=== PATIENT | female | born 1955 | race Caucasian/White ===

== ENCOUNTER → 2019-02-26 09:22 | Outpatient (BNVA) | payer OTHER, SELFPAY | PROVIDERS: Family Provider Family Medicine; Referring Provider Family Medicine; Visit Provider Otolaryngology | DX: R09.81 Nasal congestion (principal); J34.2 Deviated nasal septum; J34.3 Hypertrophy of nasal turbinates; J32.9 Chronic sinusitis, unspecified; H60.63 Unspecified chronic otitis externa, bilateral | CPT/HCPCS: 99203; 99214 ==

== ENCOUNTER 2019-03-13 10:04 | Outpatient (CLI) | payer OTHER, SELFPAY ==
--- NOTE | 2019-03-13 10:30 | CT_ITS ---
WS: [id number] CT PARANASAL SINUSES HISTORY: sinusitis TECHNIQUE: Contiguous 2.5 mm axial images obtained through the sinuses. Images are reconstructed in s agittal and coronal planes. All CT scans at [facility] use at least one of these dose opt imization techniques: automated exposure control; mA and/or kV adjustment per patient size (includes targeted exams where dose is matched to clinical indication); or iterative reconstruction. DLP: 525.01 mGy.cm COMPARISON: 01/13/2008 Frontal sinuses: Small septa extend to the frontal sinus. No bone destruction or mucoperiosteal disea se. Sphenoid sinus: Normal. Ethmoid sinuses: Mild mucoperiosteal thickening in the mid posterior LEFT ethmoid air cells. Maxillary sinus: Complete soft tissue opacification of the LEFT maxillary sinus. This was previously described in 2008 with no interval change. There is no bone destruction or expansion of the nasal cav ity or bone thickening. RIGHT maxillary sinus is clear. Ostiomeatal unit: Complete soft tissue obstruction of the LEFT ostiomeatal unit. Similar to the prior examinations. Mild thinning of the uncinate process but no progression since the prior examinations. RIGHT ostiomeatal unit is widely patent. Mild S-shaped curvature nasal septum. CT/CT sinus wo con* [id number] IMPRESSION: 1. Long-term complete opacification of the LEFT maxillary sinus. No bone dest ruction or cortical thickening. Suspect this is probably chronic mucoperiosteal thickening or mucous retention cyst. 2. LEFT maxillary sinus opacification has completely obstructed the LEFT ostio meatal unit. Also no change since 2007. 3. Very mild S-shaped curvature of the nasal septum.
== END 2019-03-13 10:05 | disposition home or self-care (01) ==
PROVIDERS: Family Provider Family Medicine; PCP Family Medicine; Visit Provider Otolaryngology
DX: J32.9 Chronic sinusitis, unspecified (principal); J34.89 Other specified disorders of nose and nasal sinuses
CPT/HCPCS: 70486

== ENCOUNTER → 2019-03-18 14:52 | Outpatient (BNVA) | payer OTHER, SELFPAY | PROVIDERS: Family Provider Family Medicine; PCP Family Medicine; Visit Provider Otolaryngology | DX: J32.9 Chronic sinusitis, unspecified (principal) | CPT/HCPCS: 96372; 99214; J3301 ==

== ENCOUNTER → 2019-04-10 14:55 | Outpatient (BNVA) | payer OTHER, SELFPAY | PROVIDERS: Family Provider Family Medicine; PCP Family Medicine; Visit Provider Otolaryngology | DX: J32.0 Chronic maxillary sinusitis (principal); J34.89 Other specified disorders of nose and nasal sinuses; J34.3 Hypertrophy of nasal turbinates; J34.2 Deviated nasal septum; H60.63 Unspecified chronic otitis externa, bilateral | CPT/HCPCS: 99214 ==

== ENCOUNTER 2019-04-16 07:27 | Outpatient (CLI) | payer OTHER, SELFPAY ==
--- NOTE | 2019-04-16 07:32 | MM_ITS ---
WS: [id number] SCREENING DIGITAL MAMMOGRAM WITH CAD HISTORY: SCREENING COMPARISON: 02/15/2018, 01/25/2017. Bilateral CC and MLO views submitted. Computer aided detection analyzed. Breast composition: The breasts are heterogeneously dense, which may obscure small masses. Asymmetry measuring 6.3 mm in the lateral LEFT breast seen on the CC projection. Otherwise breast par enchyma is stable. No calcifications or distortion. LEFT breast: Spot compression views (CC ). True ML. Ultrasound to follow if abnormality persists. MM/[place] [id number] IMPRESSION: BI-RADS: 0-Incomplete: Need additional imaging evaluation FOLLOW UP: Need Additional Imaging
== END 2019-04-16 07:28 | disposition home or self-care (01) ==
LOC: RADSHAW 07:28
PROVIDERS: Family Provider Family Medicine; PCP Family Medicine; Visit Provider Obstetrics & Gynecology
DX: Z12.31 Encounter for screening mammogram for malignant neoplasm of breast (principal)
CPT/HCPCS: 77067

== ENCOUNTER 2019-04-28 10:25 | Outpatient (CLI) | payer OTHER, SELFPAY ==
--- NOTE | 2019-04-28 10:28 | US_ITS ---
WS: [id number] ADDITIONAL VIEWS LEFT MAMMOGRAM LEFT BREAST ULTRASOUND HISTORY: LT BREAST ASYMMETRY COMPARISON: 04/16/2019 and 02/15/2018 LEFT MAMMOGRAM: Spot compression views and true ML. Ovoid asymmetry persist at the 1-2 o'clock axis measuring 6 mm. Ultrasound to follow. LEFT BREAST ULTRASOUND 2-D and color Doppler imaging submitted. Ultrasound directed to the upper outer quadrant of the LEFT breast. At the 2:00 axis is a small cyst measuring 3 x 3 x 2 mm, 3 cm from the nipple. There is an additional ovoid minimally complex cyst at 3:00, 2 cm from the nipple. This is not completely cystic. Hypoechoic mass measures 6 x 7 x 3 mm. Recommend LEFT mammogram and ultrasound follow-up in 6 months. In particular to reevaluate the comple x cystic nodule at 3:00, 2 cm from the nipple. US/US breast LT limited* [id number] IMPRESSION: BI-RADS: 3-Probably Benign FOLLOW UP: 6 Month Follow-up
== END 2019-04-28 10:26 | disposition home or self-care (01) ==
LOC: RADSHAW 10:25
PROVIDERS: Family Provider Family Medicine; PCP Family Medicine; Visit Provider Obstetrics & Gynecology
DX: N64.89 Other specified disorders of breast (principal); N60.02 Solitary cyst of left breast
CPT/HCPCS: 76642; 77065

== ENCOUNTER 2019-09-18 08:54 | Outpatient (CLI) | payer OTHER, SELFPAY ==
--- NOTE | 2019-09-18 09:10 | US_ITS ---
WS: [id number] Left breast ultrasound, 09/18/2019 Clinical Data: LT BREAST CYSTIC NODULE Comparison: Left breast ultrasound, 04/28/2019. Findings: At the 3:00 position 2 cm from the nipple in the left breast there is an area of cystic change. It is likely a complex cyst with echoes within. It is well bordered and the border is slightly irregular b ut there are no gaps in the border. This complex cystic area measures 0.55 cm and has not changed in appearance. 1. Probable complex cyst of the left breast in the 3:00 position 2 cm from the nipple. 2. Recommend 6 month follow-up with ultrasound US/US breast LT limited* [id number] Impression: BIRADS: 3-Probably Benign FOLLOW UP: See Report
--- NOTE | 2019-09-18 09:10 | MM_ITS ---
WS: [id number] Left breast diagnostic digital mammogram, 09/18/2019 Clinical Data: LT BREAST CYSTIC NODULE Comparison: 04/28/2019, 04/16/2019, 02/15/2018, and 25/02/2016, 01/11/2016, 11/04/2014, 09/29/2011, 1, 09/13/2006. Findings: The left lateral nodule is not seen on the CC or ML view of the left breast on the current examinatio n. There were numerous mole markers placed on the left breast. The breast parenchymal pattern showed heterogeneous density. No spiculated masses or clustered calcifications are seen. MM/[place] [id number] Impression: 1. Density in the lateral aspect the left breast not well seen on today's exam. 2. Recommend follow-up with ultrasound in 6 months. BIRADS: 3-Probably Benign FOLLOW UP: See Report The CAD roller checker was used.
== END 2019-09-18 08:55 | disposition home or self-care (01) ==
LOC: RADSHAW 08:54
PROVIDERS: PCP Family Medicine; Visit Provider Obstetrics & Gynecology
DX: N60.02 Solitary cyst of left breast (principal)
CPT/HCPCS: 76642; 77065

== ENCOUNTER → 2019-11-04 14:54 | Outpatient (BNVA) | payer MEDICARE, OTHER, SELFPAY | PROVIDERS: PCP Family Medicine; Referring Provider Dermatology; Visit Provider Dermatology | DX: L21.9 Seborrheic dermatitis, unspecified (principal); L82.1 Other seborrheic keratosis; D22.9 Melanocytic nevi, unspecified; D23.9 Other benign neoplasm of skin, unspecified | CPT/HCPCS: 99203; 99204 ==

== ENCOUNTER 2020-03-16 08:43 | Outpatient (CLI) | payer MEDICARE, OTHER, SELFPAY ==
--- NOTE | 2020-03-16 09:02 | MM_ITS ---
WS: [id number] DIAGNOSTIC LEFT DIGITAL MAMMOGRAM WITH CAD LEFT breast ultrasound, limited HISTORY: 6 MO F/U CYST OF LEFT BREAST COMPARISON: 09/18/2019, 04/16/2019, 01/25/2017 Technique: CC, MLO and ML views. Spot compression LEFT CC. Breast composition: There are scattered areas of fibroglandular density. No change in the asymmetry. In the lateral aspect of the LEFT breast are stable nodules. This will be better evaluated by ultras ound. LEFT breast ultrasound, limited. At 3:00, 2 cm from the nipple is a lobulated complex cystic mass without increased vascularity. There is no through-transmission. This irregular nodule measures 5 x 8 x 5 mm. Nodule not significantly ch anged in size. MM/[place] [id number] IMPRESSION: BI-RADS: 4-Suspicious Finding-Biopsy Should Be Considered FOLLOW UP: Biopsy Recommended Ultrasound-guided biopsy recommended of the complex cystic nodule at 3:00. Mini mal change in size since the prior study.
== END 2020-03-16 08:44 | disposition home or self-care (01) ==
LOC: RADSHAW 08:44
PROVIDERS: PCP Family Medicine; Visit Provider Obstetrics & Gynecology
DX: N60.02 Solitary cyst of left breast (principal); N63.25 Unspecified lump in the left breast, overlapping quadrants
CPT/HCPCS: 76642; 77065

== ENCOUNTER 2020-03-30 07:03 | Outpatient (CLI) | payer MEDICARE, OTHER, SELFPAY ==
--- NOTE | 2020-03-30 07:10 | US_ITS ---
WS: [id number] ULTRASOUND-GUIDED LEFT BREAST BIOPSY CLINICAL INFORMATION: LEFT BREAST CYSTIC NODULE COMPARISON: None. FINDINGS: The procedure including risks, benefits, and complications were discussed with the patient who agreed to proceed. Using sterile technique patient was prepped and draped in the usual sterile fashion. Aft er 1% lidocaine utilizing real-time ultrasound guidance 5 14-gauge cores were obtained of the left br east lesion at the 3 o'clock position. Subsequently a titanium clip was placed in the biopsy cavity. No immediate complications. PATHOLOGY DEMONSTRATES A. Breast, left, biopsy: -Cores of fibroadipose tissue with rare atypical areas. -Ancillary studies have been performed and will be reported in the pathology report. FINAL PATHOLOGY demonstrates atypical ductal hyperplasia in a background of sclerosing adenosis. No i nvasive carcinoma or ductal carcinoma in situ. US/[place] [id number] IMPRESSION: 1. Uncomplicated ultrasound-guided left breast biopsy. 2. FINAL PATHOLOGY demonstrates ATYPICAL DUCTAL HYPERPLASIA with a background of sclerosing adenosis. No invasive carcinoma or ductal carcinoma in situ. Naun mmend breast surgical consultation for excision. BI-RADS: Post Biopsy FOLLOW UP: Surgical Biopsy Recommended Recommend Breast surgery consultation for surgical excision consideration due t o the atypical ductal hyperplasia.
== END 2020-03-30 07:04 | disposition home or self-care (01) ==
LOC: RAD 07:06
PROVIDERS: PCP Family Medicine; Visit Provider Obstetrics & Gynecology
DX: D24.2 Benign neoplasm of left breast (principal); N60.02 Solitary cyst of left breast
CPT/HCPCS: 19083; 88305

== ENCOUNTER → 2020-04-30 08:37 | Outpatient (BNVA) | payer MEDICARE, OTHER, SELFPAY | PROVIDERS: PCP Family Medicine; Visit Provider Surgery | DX: Z01.818 Encounter for other preprocedural examination (principal); Z20.828 Contact with and (suspected) exposure to other viral communicable diseases | CPT/HCPCS: 87635 ==

== ENCOUNTER 2020-05-06 07:26 | Day surgery (SDC) | payer MEDICARE, OTHER, SELFPAY ==
[2020-05-05 14:12] VITALS: BMI 27.4
[2020-05-06] VITALS (7 sets, daily range): BP systolic 119–147; BP diastolic 55–91; PULSE 57–88; RESP 18–20; TEMP 36.1–36.7; O2SAT 94–99
--- NOTE | 2020-05-06 07:53 | US_ITS ---
WS: [id number] ULTRASOUND-GUIDED LEFT BREAST NEEDLE LOCALIZATION HISTORY: ADH Procedure, risks and complications were explained to the patient. Consent is obtained. Skin is cleansed with ChloraPrep and anesthetized with 1% buffered lidocaine. Needle and guidewire pl aced to the area of concern with no complications. Ultrasound guidance performed during the needle lo calization. Guidewire is left within the lesion. Guidewire secured and no complications encountered. Patient is being transported to the OR suite. Specimen radiograph is also reviewed. Area of concern is contained within the specimen. RECOMMENDATIONS: Follow-up with Dr. Mosqueda. US/[place] [id number] IMPRESSION: 1. Uncomplicated needle localization of LEFT breast mass at 3:00. PATHOLOGY RESULTS: Atypical ductal hyperplasia on a background of sclerosing ad enosis. No ductal carcinoma in situ identified. No invasive carcinoma. Multifoc al atypia is noted along the medial edge of the biopsy cavity. Pathology report describes this as worrisome for an intracystic neoplastic process. This is a p reliminary report. Pathology will be following up with an additional final repo rt.
--- NOTE | 2020-05-06 08:13 | PC.NURSE ---
PATIENT OFF THE UNIT FOR ULTRASOUND. ACCOMPANIED BY STAFF
--- NOTE | 2020-05-06 08:16 | ANES.PREANE2 ---
Pre-Anesthetic Assessment Pre-Anesthetic Assessment: Height/Weight: Height 1.65 m Weight 74.843 kg Temp Pulse Resp BP Pulse Ox 97.4 F L 60 18 140/91 97 05/06/20 07:39 05/06/20 07:39 05/06/20 07:39 05/06/20 07:39 05/06/20 07:39 Proposed Procedure: Operation Date: 05/06/20 09:15 Proposed Procedures p Breast Biopsy Needle Localization N60.92(Left) - Robby Mosqueda MD s Left breast lumpectomy(Left) - Robby Mosqueda MD Was Beta Charissa taken within 24 hours: N/A Was Clonidine taken within 24 hours: N/A Last intake: Intake Last Liquid Date 05/05/20 Last Liquid Time 18:30 Last Solid Date 05/05/20 Last Solid Time 18:30 Social: Social History: No alcohol and No tobacco Exam: Pre-Anes Outpt Exam: alert, oriented x 3, clear to auscultation bilaterally and regular rate & rhythm Airway: Submandibular: WNL Cervical ROM: WNL MP: 2 Dentition: Full CV/HEM: CV/HEM: HTN Anesthetic Plan: ASA status: 2 Anesthesia: MAC Risk of > 500 ml blood loss (7ml/kg in children): No PFSH Anesthesia PFSH: Medical History Nasal vestibulitis Family History Mother Dementia Father Cancer Other Hypertension Social History Smoking and tobacco status: never smoked Alcohol intake: current Alcohol intake frequency: few times a month Data Anesthesia Cardiac Studies: No Data to Display
--- NOTE | 2020-05-06 08:57 | PC.NURSE ---
PATIENT BACK ON UNIT FROM ULTRASOUND
[2020-05-06] MEDS: sodium chloride 0.9% 1,000 ML 30 ML IV (09:12)
--- NOTE | 2020-05-06 11:28 | W.PM.OPSUD ---
Surgery/Procedure H&P Update DATE OF PROCEDURE: May 06, 2020 DATE H&P PERFORMED: 04/20/20 H&P UPDATE INFORMATION: No changes to prior documentation PLANNED PROCEDURE: Operation Date: 05/06/20 09:15 Proposed Procedures p Breast Biopsy Needle Localization [id number] N60.92(Left) - Robby Mosqueda MD s Left breast lumpectomy(Left) - Robby Mosqueda MD
--- NOTE | 2020-05-06 12:06 | P.OP_ITS ---
Operative Report Date of procedure: May 06, 2020 Pre-op Diagnosis: Atypical ductal hyperplasia of the left breast. Post-op diagnosis: same Procedure Done: Left breast lumpectomy following preoperative needle localization. Specimens removed/disposition: 1. Left breast lumpectomy specimen containing localization wire. Long suture anteriorly, short suture laterally. 2. Medial edge of biopsy cavity. Surgeon: Robby Mosqueda Anesthesia: MAC Estimated blood loss (mL): 5 Complications: None. Condition: stable Disposition: same day Procedure: The patient was brought to the operating room and was placed in a supine position on the operating room table. A monitored anesthetic was induced. The left breast was prepped and draped in a sterile fashion, taking care not to disturb the localization wire which had been placed in radiology preoperatively. A combination of 1% lidocaine and 0.5% bupivacaine with 1- 200,000 parts epinephrine was used for local anesthesia throughout the procedure. A curvilinear incision was carried out at the 3-4 o'clock axis of the left breast over the jose where the radiologist had indicated the location of the lesion. The localization wire entered laterally and somewhat superiorly to this. Cautery was used to enter the breast tissue and then the skin was undermined to the insertion point of the wire. The wire was brought into the incision. Dissection was carried out along the wire until the hub of the needle could be seen. The localization wire and surrounding breast tissue were then grasped with an Allis clamp and a combination of cautery and sharp dissection were used to remove the entire mass of tissue around the tip of the localization wire. Before the specimen had been completely removed it was marked with a long suture anteriorly and a short suture laterally for pathologic orientation. Palpation in the remainder of the wound revealed a little bit of firm tissue medially. For this reason the tissue was grasped with an Allis clamp and was excised using a pair of Metzenbaum scissors and was sent as a separate specimen. No remaining palpable abnormalities were visual abnormalities were found in the wound. The wound was irrigated with saline. Some small bleeding points were controlled with cautery. The skin was reapproximated using a running subcuticular suture of 4-0 Vicryl. Benzoin and Steri-Strips were placed over the incision and a sterile bandage followed. The patient was taken to the recovery area in stable condition postoperatively.
--- NOTE | 2020-05-06 12:15 | SUR.PHASEI ---
DR AYERS AT BEDSIDE PT AWAKES TO VOICE EASILY AND VERBALLY AND APPROPRIATELY CONVERSES WITH DR, PT DENIES PAIN AND NAUSEA, VSS.
--- NOTE | 2020-05-06 13:00 | US_ITS ---
WS: [id number] ULTRASOUND-GUIDED LEFT BREAST NEEDLE LOCALIZATION HISTORY: ADH Procedure, risks and complications were explained to the patient. Consent is obtained. Skin is cleansed with ChloraPrep and anesthetized with 1% buffered lidocaine. Needle and guidewire pl aced to the area of concern with no complications. Ultrasound guidance performed during the needle lo calization. Guidewire is left within the lesion. Guidewire secured and no complications encountered. Patient is being transported to the OR suite. Specimen radiograph is also reviewed. Area of concern is contained within the specimen. RECOMMENDATIONS: Follow-up with Dr. Mosqueda. US/US breast surgical specimen IMPRESSION: 1. Uncomplicated needle localization of LEFT breast mass at 3:00. PATHOLOGY RESULTS: Atypical ductal hyperplasia on a background of sclerosing ad enosis. No ductal carcinoma in situ identified. No invasive carcinoma. Multifoc al atypia is noted along the medial edge of the biopsy cavity. Pathology report describes this as worrisome for an intracystic neoplastic process. This is a p reliminary report. Pathology will be following up with an additional final repo rt.
--- NOTE | 2020-05-06 14:46 | ANE.PACU2 ---
Inpatient post-anesthesia follow up: Airway intact: Yes Vital signs: Temperature 97.0 F Pulse Rate 88 Respiratory Rate 18 Blood Pressure 137/65 Pulse Oximetry 99 Oxygen Delivery Me thod Room Air Oxygen Flow Rate Fraction of Inspir ed Oxygen Hydration adequate: Yes Nausea and vomiting: No Pain level: 1 Mental status: Baseline
== END 2020-05-06 13:16 | disposition home or self-care (01) ==
PROVIDERS: PCP Family Medicine; Visit Provider Surgery
PROC: (CPT 19301; principal; 2020-05-06 09:15)
PROC: (CPT 19301; 2020-05-06 09:15)
DX: N60.92 Unspecified benign mammary dysplasia of left breast (principal); I10 Essential (primary) hypertension; Z79.82 Long term (current) use of aspirin
CPT/HCPCS: 19301; 12345; 19285; 88305; 96365; C1889; J0690; J2704; J3010; J3490; J7030

== ENCOUNTER 2020-07-07 09:13 | Outpatient (CLI) | payer MEDICARE, OTHER, SELFPAY ==
--- NOTE | 2020-07-07 09:25 | MM_ITS ---
WS: [id number] DIAGNOSTIC RIGHT DIGITAL MAMMOGRAM WITH CAD HISTORY: COMPLETION OF REFERRAL FROM MAR 2020 COMPARISON: 04/16/2019, 02/16/2008 and 01/25/2017 Technique: CC, MLO and ML views. Breast composition: There are scattered areas of fibroglandular density. No suspicious masses or elyssa cifications or distortion. MM/[place] [id number] IMPRESSION: BI-RADS: 1-Negative FOLLOW UP: 1 Year Follow-up
== END 2020-07-07 09:14 | disposition home or self-care (01) ==
LOC: RADSHAW 09:19
PROVIDERS: PCP Family Medicine; Visit Provider Obstetrics & Gynecology
DX: N60.91 Unspecified benign mammary dysplasia of right breast (principal)
CPT/HCPCS: 77065

== ENCOUNTER 2021-07-27 07:58 | Outpatient (CLI) | payer MEDICARE, OTHER, SELFPAY ==
--- NOTE | 2021-07-27 08:11 | MM_ITS ---
WS: [id number] VIEWS: MLO, CC, and ML views both breasts. 3D digital tomosynthesis is also included in this exam. Comparison made with prior exam of 02/15/2018, 04/16/2019. 07/07/2020.. Findings: There was no sign of mass, architectural distortion or suspicious calcification in either breast. Sc attered fibroglandular densities MM/[place] [id number] Impression: BI-RADS: 2-Benign FOLLOW-UP: 1 Year Follow-up This mammogram was also analyzed by the Computer Aided Detection System R2 [employer] Re[employer]er.
== END 2021-07-27 07:59 | disposition home or self-care (01) ==
LOC: RAD 08:01
PROVIDERS: PCP Family Medicine; Visit Provider Obstetrics & Gynecology
DX: Z12.31 Encounter for screening mammogram for malignant neoplasm of breast (principal); Z85.3 Personal history of malignant neoplasm of breast
CPT/HCPCS: 77062

== ENCOUNTER → 2021-08-30 13:12 | Outpatient (BNVA) | payer MEDICARE, OTHER, SELFPAY | PROVIDERS: PCP Family Medicine; Visit Provider Clinical Nurse Specialist Adult Health | DX: R52 Pain, unspecified (principal) | CPT/HCPCS: 87400 ==

== ENCOUNTER → 2022-07-13 08:11 | Outpatient (BNVA) | payer MEDICARE, OTHER, SELFPAY | PROVIDERS: PCP Family Medicine; Visit Provider Family Medicine | DX: Z00.00 Encounter for general adult medical examination without abnormal findings (principal); E03.9 Hypothyroidism, unspecified; Z13.6 Encounter for screening for cardiovascular disorders | CPT/HCPCS: 80053; 80061; 84443; 85025 ==

== ENCOUNTER → 2022-08-03 10:23 | Outpatient (BNVA) | payer MEDICARE, OTHER, SELFPAY | PROVIDERS: PCP Family Medicine; Visit Provider Family Medicine | DX: E55.9 Vitamin D deficiency, unspecified (principal) | CPT/HCPCS: 82652 ==

== ENCOUNTER 2022-08-28 08:42 | Outpatient (CLI) | payer MEDICARE, OTHER, SELFPAY ==
--- NOTE | 2022-08-28 09:51 | MM_ITS ---
WS: [id number] DIAGNOSTIC BILATERAL DIGITAL BREAST TOMOSYNTHESIS MAMMOGRAPHY WITH CAD HISTORY: R92.8 - Other abnormal and inconclusive findings on diagnostic imaging.... COMPARISON: 07/27/2021, 07/07/2020 TECHNIQUE: Bilateral craniocaudad, mediolateral oblique, and mediolateral views are submitted with to mosynthesis and SM. Computer aided detection utilized. Breast composition: Scattered areas of fibroglandular density. No suspicious masses. Asymmetries with in each breast are stable. No nipple retraction. No distortion. MM/[place] [id number] IMPRESSION: BI-RADS: 1-Negative FOLLOW UP: 1 Year Follow-up
== END 2022-08-28 08:43 | disposition home or self-care (01) ==
PROVIDERS: PCP Family Medicine; Visit Provider Family Medicine
DX: R92.8 Other abnormal and inconclusive findings on diagnostic imaging of breast (principal)
CPT/HCPCS: 77062; 77063; 77067; G0279

== ENCOUNTER 2022-10-24 08:27 | Outpatient (CLI) | payer MEDICARE, OTHER, SELFPAY ==
--- NOTE | 2022-10-24 08:38 | XR_ITS ---
WS: [id number] XR hip BI 2V wo/w pel [id number] REASON FOR EXAM: hip pain FINDINGS: RIGHT HIP: No fracture or focal bone lesion. Mild/moderate narrowing of the joint space with mild/moderate subchondral sclerosis of the acetabulum . No soft tissue abnormality. LEFT HIP: No fracture or focal bone lesion. Mild/moderate narrowing of the joint space with mild subchondral sclerosis of the acetabulum. No soft tissue abnormality. IMPRESSION: Symmetric mild/moderate osteoarthritis of the hip joints.
== END 2022-10-24 08:28 | disposition home or self-care (01) ==
LOC: RAD 08:32
PROVIDERS: PCP Family Medicine; Visit Provider Family Medicine
DX: M16.0 Bilateral primary osteoarthritis of hip (principal)
CPT/HCPCS: 73521

== ENCOUNTER 2023-07-15 23:48 | Emergency (ER) | payer MEDICARE, OTHER, SELFPAY ==
[2023-07-15 23:56] VITALS: BP 165/87; PULSE 57; RESP 18; TEMP 36.7; O2SAT 100; BMI 25.4
--- NOTE | 2023-07-15 23:58 | CTR_ITS ---
PROCEDURE INFORMATION: Exam: CT Abdomen And Pelvis With Contrast Exam date and time: 07/16/2023 12:39 AM Age: 67 years old Clinical indication: Abdominal pain; Prior surgery; Surgery date: 6+ months; Surgery type: Ovarian cystectomy; Patient HX: C/O periumbilical pain with nausea; Additional info: Abd pain TECHNIQUE: Imaging protocol: Computed tomography of the abdomen and pelvis with contrast. Radiation optimization: All CT scans at this facility use at least one of these dose optimization techniques: automated exposure control; mA and/or kV adjustment per patient size (includes targeted exams where dose is matched to clinical indication); or iterative reconstruction. Contrast material: OMNI 350; Contrast volume: 100 ml; Contrast route: INTRAVENOUS (IV); COMPARISON: CR XR hip BI 2V wo/w pel [id number] 10/24/2022 8:53 AM RADIATION DOSE METRICS: Total DLP (mGy-cm): 487.88 FINDINGS: Liver: Normal. No mass. Gallbladder and bile ducts: Gallbladder is distended with wall thickening and cholelithiasis, correlation with ultrasound advised as findings are concerning for cholecystitis. Pancreas: 4 mm calculus in the common bile duct at the level the pancreatic head with borderline common bile duct dilation to 6.8 mm. Spleen: Normal. No splenomegaly. Adrenal glands: Normal. No mass. Kidneys and ureters: Right kidney cysts, negative for follow-up advised. Right kidney cyst, negative for follow up. Stomach and bowel: Constipation. Minimal diverticulosis without diverticulitis. Appendix: No evidence of appendicitis. Intraperitoneal space: Unremarkable. No free air. No significant fluid collection. Vasculature: Unremarkable. No abdominal aortic aneurysm. Lymph nodes: Unremarkable. No enlarged lymph nodes. Urinary bladder: Unremarkable as visualized. Reproductive: Fibroid uterus. Bones/joints: Unremarkable. No acute fracture. Soft tissues: Small umbilical hernia containing omentum without bowel. CT/CT abdomen pelvis w con* [id number] IMPRESSION: 1. Gallbladder is distended with wall thickening and cholelithiasis, correlation with ultrasound advised as findings are concerning for cholecystitis. 2. 4 mm calculus in the common bile duct at the level the pancreatic head with borderline common bile duct dilation to 6.8 mm. 3. Right kidney cysts, negative for follow-up advised. 4. Constipation. 5. Minimal diverticulosis without diverticulitis. 6. Small umbilical hernia containing omentum without bowel. 7. Fibroid uterus. 8. Right kidney cyst, negative for follow up.
--- NOTE | 2023-07-15 23:59 | ED_ITS ---
HPI - Abdominal Pain 2 General: Chief Complaint: Abdominal Pain Stated Complaint: severe belly button pain n/v Time Seen by Provider: 07/15/23 23:50 Source: patient Mode of arrival: ambulatory Limitations: no limitations History of Present Illness: 67-year-old female states that 3 hours a go she was having severe lower abdominal pain she has been a sharp pain at her bellybutton denies any worse improved factors she had some nausea denies vomiting or diarrhea patient denies any fevers. Denies any worse improved factors Associated Symptoms: Denies chills, diarrhea, dysuria, fever(s), nausea and vomiting Review of Systems 2 Const: Denies: fever(s), chills, body aches or change in appetite ENMT: Denies: throat pain or dental pain Card: Denies: chest pain Resp: Denies: dyspnea GI: Reports: abdominal pain; Denies: nausea, vomiting or diarrhea : Denies: dysuria Musc: Denies: neck pain or back pain Skin/Breast: Denies: rash Neuro: Denies: headache(s) PFSH ED 2 PFSH: Medical History Hypertension Hypoglycemia Nasal vestibulitis Surgical History History of knee surgery History of lumpectomy Family History Mother Dementia Father Cancer Other Hypertension Social History Smoking and tobacco/nicotine status: never used tobacco/nicotine Alcohol intake: current Alcohol intake frequency: few times a month Substance/Drug Use: never Pets and animals: No Physical Exam 2 Const: COMMON NORMALS: no acute distress, patient oriented x3 and healthy appearing HENMT: COMMON NORMALS: normocephalic and atraumatic HEAD & SCALP: n ormocephalic and atraumatic Neck/C-Spine: COMMON NORMALS: full ROM and supple Chest: COMMONS NORMALS: normal inspection of the chest Resp: COMMON NORMALS: normal respiratory effort, No retractions, No use of accessory muscles and clear to auscultation bilaterally AUSCULTATION: clear to auscultation bilaterally Cardio: COMMON NORMALS: regular rate, regular rhythm and No murmurs present (Cardio) RATE: regular rate RHYTHM: regular rhythm GI: COMMON NORMALS: Normal to inspection, nondistended, normoactive bowel sounds present, Soft to palpation and no masses PALPATION: Yes Soft to palpation OTHER: lower abd tenderness Extremity: COMMON NORMALS: normal to inspection and full ROM Neuro: COMMON NORMALS: patient oriented x3, moves all extremities and no focal motor deficits Psych: COMMON NORMALS: mental status grossly normal, Normal thought process present and cooperative THOUGHT PROCESS: Normal thought process present Skin: COMMON NORMALS: no rashes or lesions noted and no wounds GENERAL SKIN EXAM: no rashes or lesions noted Course 2 Vital Signs: Vital signs: Vital Signs Temperature 98.1 F 07/15/23 23:56 Pulse Rate 48 L 07/16/23 02:04 Respiratory Rate 15 07/16/23 00:22 Blood Pressure 108/63 07/16/23 02:04 Pulse Oximetry 92 07/16/23 02:04 Oxygen Delivery Me thod Room Air 07/16/23 02:04 MDM - Abdominal Pain Medical Decision Making Patient presents here with abdominal pain or pains in her lower abdomen she has been pain-free after the morphine she still currently pain-free at this time. Initial and exam at discharge showed no tenderness in the right upper quadrant white counts normal liver enzymes normal bilirubin is normal. CT and ultrasound both did show stones along with some gallbladder wall thickening I have spoke to surgeon Dr. Castillo and inform him of ultrasound findings along with exam findings and her labs plan is to start her on Augmentin he is going to follow-up outpatient informed if she has worsening pain or fever she is to return she understands agrees to plan Medical Records I reviewed the patient's medical records. Lab Data I reviewed the patient's lab results. 07/16/23 00:04 07/16/23 00:04 Labs/Radiology: Radiology Impressions Abdomen/Pelvis CT 07/15/23 23:58 IMPRESSION: 1. Gallbladder is distended with wall thickening and cholelithiasis, correlation with ultrasound advised as findings are concerning for cholecystitis. 2. 4 mm calculus in the common bile duct at the level the pancreatic head with borderline common bile duct dilation to 6.8 mm. 3. Right kidney cysts, negative for follow-up advised. 4. Constipation. 5. Minimal diverticulosis without diverticulitis. 6. Small umbilical hernia containing omentum without bowel. 7. Fibroid uterus. 8. Right kidney cyst, negative for follow up. Laboratory Results WBC 9.04 10^3/uL (3.29-11.43) 07/16/23 00:04 RBC 5.10 10^6/uL (3.85-5.65) 07/16/23 00:04 Hgb 15.40 g/dL (11.27-16.99) 07/16/23 00:04 Hct 46.3 % (36-47) 07/16/23 00:04 MCV 90.8 fl (85-98) 07/16/23 00:04 MCH 30.2 pg (27-33) 07/16/23 00:04 MCHC 33.3 g/dL (30-55) 07/16/23 00:04 RDW 13.2 % (12.1-15.1) 07/16/23 00:04 Plt Count 290 10^3/cmm (157-399) 07/16/23 00:04 MPV 10.4 fL (7.4-10.4) 07/16/23 00:04 Neut % (Auto) 54.0 % 07/16/23 00:04 Lymph % (Auto) 34.5 % 07/16/23 00:04 [place] % (Auto) 8.2 % 07/16/23 00:04 Eos % (Auto) 2.5 % 07/16/23 00:04 Baso % (Auto) 0.6 % 07/16/23 00:04 Neut # (Auto) 4.88 10^3/uL (1.8-7.7) 07/16/23 00:04 Lymph # (Auto) 3.1 10^3/uL (0.8-4.8) 07/16/23 00:04 [place] # (Auto) 0.7 10^3/uL (0.2-0.9) 07/16/23 00:04 Eos # (Auto) 0.2 10^3/uL (0.0-0.8) 07/16/23 00:04 Baso # (Auto) 0.1 10^3/uL (0.0-0.1) 07/16/23 00:04 Nucleated RBC % (auto) 0 % 07/16/23 00:04 Nucleated RBCs # 0.0 /100WBC 07/16/23 00:04 Sodium 142 mmol/L (136-145) 07/16/23 00:04 Potassium 4.0 mmol/L (3.5-5.1) 07/16/23 00:04 Chloride 102 mmol/L (98-107) 07/16/23 00:04 Carbon Dioxide 26 mmol/L (22-29) 07/16/23 00:04 Anion Gap 18.0 (5-19) 07/16/23 00:04 BUN 19 mg/dL (8-23) 07/16/23 00:04 Creatinine 1.0 mg/dL (0.5-0.9) H 07/16/23 00:04 GFR Calculation 55.1 mL/min (90-130) L 07/16/23 00:04 Glucose 120 mg/dL (65-115) H 07/16/23 00:04 Calculated Osmolality 297 mOsm/kg (285-295) H 07/16/23 00:04 Calcium 9.8 mg/dL (8.5-10.5) 07/16/23 00:04 Total Bilirubin 0.6 mg/dL (0.15-1.2) 07/16/23 00:04 AST 23 U/L (0-32) 07/16/23 00:04 ALT 17 U/L (0-33) 07/16/23 00:04 Alkaline Phosphatase 52 U/L (35-105) 07/16/23 00:04 Total Protein 6.8 g/dL (6.6-8.7) 07/16/23 00:04 Albumin 4.2 g/dL (3.5-5.2) 07/16/23 00:04 Globulin 2.6 g/dL (1.3-4.6) 07/16/23 00:04 Lipase 29 U/L (13-60) 07/16/23 00:04 Urine Color Yellow (Yellow) 07/16/23 00:45 Urine Appearance Cloudy (CLEAR) A 07/16/23 00:45 Urine pH 7 (5-7) 07/16/23 00:45 Ur Specific [place] 1.005 (1.005-1.030) 07/16/23 00:45 Urine Protein Neg (Negative) 07/16/23 00:45 Urine Glucose (UA) Norm (Normal) 07/16/23 00:45 Urine Ketones Negative (Negative) 07/16/23 00:45 Urine Blood Neg (Negative) 07/16/23 00:45 Urine Nitrate Negative (Negative) 07/16/23 00:45 Urine Bilirubin Neg (Negative) 07/16/23 00:45 Urine Urobilinogen Neg mg/dL (Negative) 07/16/23 00:45 Ur Leukocyte Esterase Negative (Negative) 07/16/23 00:45 Urine RBC 0-4 /hpf (0-2) H 07/16/23 00:45 Urine WBC 0-4 /hpf (0-5) H 07/16/23 00:45 Ur Squamous Epith Cells 0-4 /hpf (0-5) H 07/16/23 00:45 Amorphous Sediment 2+ /hpf 07/16/23 00:45 Urine Bacteria 3+ /hpf (NONE) H 07/16/23 00:45 All radiology interpretation(s) finalized by discharge Discharge Plan Discharge Patient Disposition: Home Clinical Impression: Abdominal pain, Cholelithiasis Condition: Stable Prescriptions: New ondansetron 4 mg tablet,disintegrating 4 mg PO Q6H PRN (Reason: nausea and vomiting) Qty: 14 0RF Naprosyn 500 mg tablet 500 mg PO BID PRN (Reason: pain) Qty: 20 0RF Augmentin 500-125 mg tablet 1 tab PO BID Qty: 14 0RF No Action cetirizine 10 mg capsule 10 mg PO QDAY PRN (Reason: allergy symptoms) cholecalciferol (vitamin D3) 5,000 unit capsule 5,000 unit PO QDAY Women's 50 Plus Multivitamin 400 mcg-500 mg calcium-20 mcg tablet 1 tab PO QDAY aspirin [Adult Low Dose Aspirin] 81 mg tablet,delayed release (DR/EC) 81 mg PO QDAY prednisone 20 mg tablet 60 mg PO DAILY 5 Days Qty: 15 0RF famotidine [Pepcid] 40 mg tablet 40 mg PO BID 5 Days Qty: 10 0RF diphenhydramine HCl [Benadryl Allergy] 25 mg tablet 50 mg PO Q8H PRN (Reason: itching) Qty: 60 0RF lisinopril-hydrochlorothiazide 10-12.5 mg tablet See Rx Instructions .ROUTE .COMPLEX Qty: 90 3RF Dose Instruction: TAKE ONE TABLET BY MOUTH EVERY DAY Rx Instructions: TAKE ONE TABLET BY MOUTH EVERY DAY Discharge Orders: Discharge ED (Routine); Ordered 07/16/23 Ordered By: Issa Kong Referrals: Delfino Castillo MD [Physician] - 4-7 days Romeo Ferrer DO [Primary Care Provider] - Discharge Diet: Advance as tolerated Discharge Activity: Resume usual activity Patient Instructions: Abdominal Pain (ED), Opioid Safety Coding Level of Care Code ED Band Saw Operator for Sabino Carrillo
[2023-07-16] MEDS: sodium chloride 0.9% 1,000 ML 999 ML IV (00:13)
[2023-07-16] MEDS: ondansetron 2 mg/ML SDV 2 mL 4 MG IVP (00:13)
[2023-07-16] MEDS: morphine 4 mg/mL SDV 1 mL IVP (00:13)
[2023-07-16 00:22] VITALS: PULSE 48; RESP 15; O2SAT 98
[2023-07-16 00:25] LABS: Basophils # 0.1 10^3/uL (0.0-0.1); Basophils % 0.6 %; Eosinophils # 0.2 10^3/uL (0.0-0.8); Eosinophils % 2.5 %; Hematocrit 46.3 % (36-47); Lymphocytes # 3.1 10^3/uL (0.8-4.8); Lymphocytes % 34.5 %; Mean Corpuscular HGB Conc 33.3 g/dL (30-55); Mean Corpuscular Hemoglobin 30.2 pg (27-33); Mean Corpuscular Volume 90.8 fl (85-98); Mean Platelet Volume 10.4 fL (7.4-10.4); Monocytes # 0.7 10^3/uL (0.2-0.9); Monocytes % 8.2 %; Neutrophils # 4.88 10^3/uL (1.8-7.7); Nucleated Red Blood Cells % 0 %; Platelet Count 290 10^3/cmm (157-399); Red Cell Distribution Width 13.2 % (12.1-15.1); White Blood Count 9.04 10^3/uL (3.29-11.43)
[2023-07-16] MEDS: iohexol 350 mg/mL 500 mL Btl (per mL) IV (00:41)
[2023-07-16 00:45] LABS: Alanine Aminotransferase 17 U/L (0-33); Albumin Level 4.2 g/dL (3.5-5.2); Alkaline Phosphatase 52 U/L (35-105); Blood Urea Nitrogen 19 mg/dL (8-23); Calcium 9.8 mg/dL (8.5-10.5); Carbon Dioxide 26 mmol/L (22-29); Chloride 102 mmol/L (98-107); Globulin 2.6 g/dL (1.3-4.6); Glomerular Filtration Rate 55.1 mL/min (90-130); Glucose 120 mg/dL (65-115); Lipase 29 U/L (13-60); Osmolality Calculated 297 mOsm/kg (285-295); Sodium 142 mmol/L (136-145); Total Bilirubin 0.6 mg/dL (0.15-1.2); Total Protein 6.8 g/dL (6.6-8.7)
[2023-07-16 00:46] LABS: Aspartate Amino Transferase 23 U/L (0-32)
[2023-07-16 01:17] LABS: Add Urine Microscopic? YES; Amorphous Sediment Urine 2+ /hpf; Bacteria Urine 3+ /hpf; Bilirubin Urine Neg (Negative); Blood Urine Neg (Negative); Glucose Urine UA Norm (Normal); Ketones Urine Negative (Negative); Leukocyte Esterase Urine Negative (Negative); Nitrate Urine Negative (Negative); Protein Urine Neg (Negative); RBC Urine 0-4 /hpf (0-2); Specific Gravity, Urine 1.005 (1.005-1.030); Squamous Epithelial Cell Urine 0-4 /hpf (0-5); Urine Appearance Cloudy (CLEAR); Urine Color Yellow (Yellow); Urobilinogen Urine Neg (Negative); WBC Urine 0-4 /hpf (0-5); pH Urine 7 (5-7)
--- NOTE | 2023-07-16 01:21 | USR_ITS ---
PROCEDURE INFORMATION: Exam: US Abdomen, Limited; Right Upper Quadrant Exam date and time: 07/16/2023 3:25 AM Age: 67 years old Clinical indication: Abdominal pain; Additional info: Ruq pain TECHNIQUE: Imaging protocol: Real time ultrasound of the abdomen with image documentation. Limited exam focused on the right upper quadrant. COMPARISON: CT abdomen pelvis w con* [id number] 07/16/2023 12:39 AM FINDINGS: Liver: Normal. No masses. Patent main portal vein with normal direction of flow. Gallbladder: Gallstones and sludge noted. Thickened gallbladder wall measuring 0.7 cm. Biliary ducts: Normal. No stones. No dilation. Pancreas: Visualized pancreas is unremarkable. Right kidney: Normal. No mass. No hydronephrosis. Small cysts noted, the largest measuring 3.9 cm. US/US gall bladder [id number] IMPRESSION: Cholelithiasis without clear evidence of cholecystitis. Clinical correlation recommended
[2023-07-16 02:04] VITALS: BP 108/63; PULSE 48; O2SAT 92
[2023-07-16 04:22] VITALS: BP 114/65; PULSE 44; O2SAT 95
--- NOTE | 2023-07-16 07:18 | DCPLANNER ---
messaged gen surg for er f/u
== END 2023-07-16 04:24 | disposition home or self-care (01) ==
PROVIDERS: Emergency Provider Emergency Medicine; PCP Family Medicine
DX: K80.20 Calculus of gallbladder without cholecystitis without obstruction (principal); Z79.82 Long term (current) use of aspirin; I10 Essential (primary) hypertension
CPT/HCPCS: 74177; 76705; 80053; 81001; 83690; 85025; 96374; 96375; 99285; J2270; J2405; J7030; Q9967

== ENCOUNTER → 2023-08-06 11:36 | Outpatient (BNVA) | payer MEDICARE, OTHER, SELFPAY | PROVIDERS: PCP Family Medicine; Visit Provider Family Medicine | DX: Z00.00 Encounter for general adult medical examination without abnormal findings (principal); Z13.6 Encounter for screening for cardiovascular disorders; Z13.1 Encounter for screening for diabetes mellitus; I10 Essential (primary) hypertension; E55.9 Vitamin D deficiency, unspecified; E03.9 Hypothyroidism, unspecified | CPT/HCPCS: 80053; 80061; 82652; 83036; 84443 ==

== ENCOUNTER 2023-08-31 07:50 | Outpatient (CLI) | payer MEDICARE, OTHER, SELFPAY ==
--- NOTE | 2023-08-31 08:00 | MM_ITS ---
WS: [id number] BILATERAL DIAGNOSTIC DIGITAL TOMOSYNTHESIS MAMMOGRAM WITH CAD HISTORY: HX OF BREAST CA COMPARISON: 08/28/2022, 07/27/2021 Bilateral CC, MLO and MLO views with tomosynthesis and synthetic mammography submitted. ward aide d detection analyzed. Breast composition: There are scattered areas of fibroglandular density. No suspicious masses, microc alcifications or architectural distortion. Prior LEFT lumpectomy. MM/[place] [id number] IMPRESSION: BI-RADS: 2-Benign FOLLOW UP: 1 Year Follow-up
== END 2023-08-31 07:51 | disposition home or self-care (01) ==
LOC: RAD 07:50
PROVIDERS: PCP Family Medicine; Visit Provider Family Medicine
DX: R92.8 Other abnormal and inconclusive findings on diagnostic imaging of breast (principal); R92.323 Mammographic fibroglandular density, bilateral breasts; Z98.890 Other specified postprocedural states
CPT/HCPCS: 77062; G0279

== ENCOUNTER → 2023-09-18 10:44 | Outpatient (BNVA) | payer MEDICARE, OTHER, SELFPAY | PROVIDERS: PCP Family Medicine; Visit Provider Family Medicine | DX: Z00.00 Encounter for general adult medical examination without abnormal findings (principal); E55.9 Vitamin D deficiency, unspecified; I10 Essential (primary) hypertension | CPT/HCPCS: 82652 ==

== ENCOUNTER → 2023-11-07 09:08 | Outpatient (BNVA) | payer MEDICARE, OTHER, SELFPAY | PROVIDERS: PCP Family Medicine; Visit Provider Nurse Practitioner Family | DX: L57.0 Actinic keratosis (principal); L82.1 Other seborrheic keratosis; L57.8 Other skin changes due to chronic exposure to nonionizing radiation; L81.4 Other melanin hyperpigmentation; D18.01 Hemangioma of skin and subcutaneous tissue; D22.5 Melanocytic nevi of trunk; L60.8 Other nail disorders | CPT/HCPCS: 17000; 99213 ==

== ENCOUNTER 2023-12-16 20:56 | Emergency (ER) | payer MEDICARE, OTHER, SELFPAY ==
[2023-12-16 20:57] VITALS: BP 147/75; PULSE 59; RESP 18; TEMP 36.3; O2SAT 100; BMI 25.1
[2023-12-16 21:15] VITALS: BP 151/82
--- NOTE | 2023-12-16 21:23 | CTR_ITS ---
PROCEDURE INFORMATION: Exam: CT Abdomen And Pelvis Without Contrast Exam date and time: 12/16/2023 9:59 PM Age: 68 years old Clinical indication: Abdominal pain; Localized; Patient HX: C/O upper abd pain. History of gb attacks. TECHNIQUE: Imaging protocol: Computed tomography of the abdomen and pelvis without contrast. Radiation optimization: All CT scans at this facility use at least one of these dose optimization techniques: automated exposure control; mA and/or kV adjustment per patient size (includes targeted exams where dose is matched to clinical indication); or iterative reconstruction. COMPARISON: CT abdomen pelvis w con* [id number] 07/16/2023 12:39 AM RADIATION DOSE METRICS: Total DLP (mGy-cm): 491.38 FINDINGS: Lungs: Subsegmental bibasilar atelectasis. The visualized lung bases are otherwise clear. Diaphragm: No evidence of diaphragmatic defect. Liver: No evidence of focal hepatic lesion within limitation of a noncontrast exam. Gallbladder and biliary ducts: There is cholelithiasis. No inflammatory changes to suggest acute cholecystitis. No intrahepatic or extrahepatic biliary dilatation. Pancreas: Grossly unremarkable. Spleen: Grossly unremarkable. Adrenal glands: Grossly unremarkable. Kidneys and ureters: There are simple appearing right-sided renal cysts for which dedicated imaging follow-up is not required. Otherwise no evidence of renal parenchymal abnormality. No hydronephrosis or ureteral stone. Stomach and bowel: No evidence of bowel obstruction or perienteric inflammatory changes. Appendix: The appendix is not visualized, however there are no findings to suggest appendicitis. Intraperitoneal space: No evidence of free air or fluid collection. Vasculature: No evidence of aneurysmal dilitation of abdominal aorta. Lymph nodes: No evidence of adenopathy. Urinary bladder: Grossly unremarkable. Reproductive: Uterine fibroid. Otherwise grossly unremarkable. Bones/joints: No evidence of acute fracture or aggresive osseous lesion. Prominent L2-L3 posterior disc osteophyte complex results in severe central stenosis. Consider correlation with follow-up outpatient MRI to evaluate for neural impingement. Severe L4-L5 and L5-S1 facet arthrosis. Soft tissues: No evidence of fluid collection or hematoma in the superficial soft tissues. CT/CT abdomen pelvis wo con [id number] IMPRESSION: 1. No evidence of acute abnormality in the abdomen or pelvis within limitations of a noncontrast exam.
[2023-12-16 21:29] LABS: Basophils % 0.5 %; Eosinophils # 0.2 10^3/uL (0.0-0.8); Eosinophils % 2.3 %; Hematocrit 45.7 % (36-47); Lymphocytes # 2.8 10^3/uL (0.8-4.8); Lymphocytes % 35.1 %; Mean Corpuscular HGB Conc 32.6 g/dL (30-55); Mean Corpuscular Hemoglobin 29.7 pg (27-33); Mean Platelet Volume 9.9 fL (7.4-10.4); Monocytes # 0.6 10^3/uL (0.2-0.9); Monocytes % 7.8 %; Neutrophils # 4.29 10^3/uL (1.8-7.7); Nucleated Red Blood Cells % 0 %; Platelet Count 289 10^3/cmm (157-399); Red Blood Count 5.02 10^6/uL (3.85-5.65); Red Cell Distribution Width 13.2 % (12.1-15.1); White Blood Count 7.93 10^3/uL (3.29-11.43)
[2023-12-16 21:44] LABS: Alanine Aminotransferase 18 U/L (0-33); Alkaline Phosphatase 54 U/L (35-105); Anion Gap 16.5 (5-19); Aspartate Amino Transferase 23 U/L (0-32); Blood Urea Nitrogen 17 mg/dL (8-23); Calcium 8.6 mg/dL (8.5-10.5); Carbon Dioxide 27 mmol/L (22-29); Chloride 102 mmol/L (98-107); Creatinine Clr Calc Pharmacy 51.6301; Globulin 2.7 g/dL (1.3-4.6); Glucose 136 mg/dL (65-115); Lipase 28 U/L (13-60); Osmolality Calculated 298 mOsm/kg (285-295); Potassium 3.5 mmol/L (3.5-5.1); Sodium 142 mmol/L (136-145); Total Bilirubin 0.5 mg/dL (0.15-1.2); Total Protein 6.7 g/dL (6.6-8.7)
[2023-12-16] MEDS: ondansetron 2 mg/ML SDV 2 mL 4 MG IVP (21:49)
[2023-12-16] MEDS: sodium chloride 0.9% 1,000 ML 999 ML IV (21:49)
[2023-12-16 21:51] VITALS: BP 139/76; PULSE 51; RESP 16; O2SAT 97
[2023-12-16 21:52] LABS: Bilirubin Urine Negative (Negative); Blood Urine Negative (Negative); Glucose Urine UA Negative (Normal); Ketones Urine Trace (Negative); Leukocyte Esterase Urine Trace (Negative); Nitrate Urine Negative (Negative); Protein Urine Negative (Negative); Specific Gravity, Urine 1.021 (1.005-1.030); Urine Appearance Clear (CLEAR); Urine Color Yellow (Yellow)
[2023-12-16 21:56] LABS: Add Urine Microscopic? YES; Bacteria Urine None Seen /hpf; Hyaline Casts Urine 0-4 /lpf; RBC Urine 0-2 /hpf (0-2); Squamous Epithelial Cell Urine 0-5 /hpf (0-5)
--- NOTE | 2023-12-16 23:03 | ED_ITS ---
HPI - Abdominal Pain 2 General: Chief Complaint: Abdominal Pain Stated Complaint: dennis gallbladder, center low abd pain Time Seen by Provider: 12/16/23 21:14 History of Present Illness: This patient is a 68-year-old white female who presents to the emergency department complaining of lower abdominal pain. She states this came on 1 hour prior to arrival. She states she has had similar episodes with gallbladder attacks. She has had some nausea but no vomiting. No constipation or diarrhea. No fever. No dysuria. Past surgical history includes an ovarian cystectomy. Associated Symptoms: Reports nausea Related Data Home Medications Medication Instructions Recorded Confirmed aspirin 81 mg tablet,delayed 81 mg PO QDAY 02/26/19 10/12/22 release (Adult Low Dose Aspirin) cetirizine 10 mg capsule 10 mg PO QDAY PRN allergy symptoms 02/26/19 11/15/23 cholecalciferol (vitamin D3) 125 5,000 unit PO QDAY 02/26/19 10/12/22 mcg (5,000 unit) capsule [id number] ac 400 1 tab PO QDAY 02/26/19 10/12/22 mcg-calcium carb 500 mg-vit K1 20 mcg tablet (Women's 50 Plus Multivitamin) Previous Rx's Medication Instructions Recorded diphenhydramine HCl 25 mg tablet 50 mg (2 x 25 mg) PO Q8H PRN 10/12/22 (Benadryl Allergy) itching #60 tabs famotidine 40 mg tablet (Pepcid) 40 mg PO BID 5 days #10 tabs 10/12/22 prednisone 20 mg tablet 60 mg (3 x 20 mg) PO DAILY 5 days 10/12/22 #15 tabs lisinopril 10 See Rx Instructions .Route 03/19/23 mg-hydrochlorothiazide 12.5 mg .COMPLEX #90 tabs tablet amoxicillin 500 mg-potassium 1 tab PO BID #14 tabs 07/16/23 clavulanate 125 mg tablet (Augmentin) naproxen 500 mg tablet (Naprosyn) 500 mg PO BID PRN pain #20 tabs 07/16/23 ondansetron 4 mg disintegrating 4 mg PO Q6H PRN nausea and 07/16/23 tablet vomiting #14 tabs auto cpap #1 ea 11/15/23 Allergies Allergy/AdvReac Type Severity Reaction Status Date / Time [id number] Reductase Allergy Intermediate ALGY-Joint Verified 12/16/23 21:05 Inhibitor Pain [Dbfymqh-Ofa-Gzj Reductase Inhibitor] Sulfa (Sulfonamide Allergy Intermediate Rash Verified 12/16/23 21:05 Antibiotics) Review of Systems 2 General: Reports: 10 or more systems reviewed and unremarkable except in HPI and below GI: Reports: abdominal pain and nausea PFSH ED 2 PFSH: Medical History Hypertension Hypoglycemia Nasal vestibulitis Surgical History History of knee surgery History of lumpectomy Family History Mother Dementia Father Cancer Other Hypertension Social History Smoking and tobacco/nicotine status: never used tobacco/nicotine Alcohol intake: current Alcohol intake frequency: few times a month Substance/Drug Use: never Pets and animals: No Physical Exam 2 Const: COMMON NORMALS: no acute distress, patient oriented x3 and no limitations GENERAL APPEARANCE: cooperative and comfortable HENMT: COMMON NORMALS: normocephalic, atraumatic, Normal nasal mucous membranes and turbinates present, moist oral mucous membranes and oropharynx normal HEAD & SCALP: normal to inspection, normocephalic and atraumatic F DAMIAN & SINUS: normal facial exam NOSE: Normal nasal mucous membranes and turbinates present Eye: COMMON NORMALS: Equal, round and reactive pupils present, EOMs intact bilaterally and conjunctivae normal GENERAL EYE: appearance normal, both eyes and all related structures CONJUNCTIVA: Yes conjunctivae normal PUPIL: Yes Equal, round and reactive pupils present Neck/C-Spine: COMMON NORMALS: supple and no JVD Chest: COMMONS NORMALS: normal inspection of the chest Resp: COMMON NORMALS: normal respiratory effort and clear to auscultation bilaterally AUSCULTATION: clear to auscultation bilaterally Cardio: COMMON NORMALS: no JVD, regular rate, regular rhythm, No gallops present (Cardio), No murmurs present (Cardio) and No rub (Cardio) RATE: r egular rate RHYTHM: regular rhythm GI: COMMON NORMALS: Normal to inspection, nondistended, normoactive bowel sounds present, Soft to palpation and non-tender AUSCULTATION: Yes normoactive bowel sounds PALPATION: Yes Soft to palpation : COMMON NORMALS: Yes no CVA tenderness BLADDER/KIDNEY EXAM: Yes no CVA tenderness Back/Pelvis: COMMON NORMALS: no CVA tenderness and thoracic and lumbar spine normal to inspection Extremity: COMMON NORMALS: normal to inspection Neuro: COMMON NORMALS: patient oriented x3 and CN's II-XII intact bilaterally Psych: COMMON NORMALS: mental status grossly normal, Normal thought process present and cooperative THOUGHT PROCESS: Normal thought process present Skin: COMMON NORMALS: no rashes or lesions noted, turgor normal and no jaundice GENERAL SKIN EXAM: no rashes or lesions noted and turgor normal Course 2 Vital Signs: Vital signs: Vital Signs Temperature 97.4 F L 12/16/23 20:57 Pulse Rate 51 L 12/16/23 21:51 Respiratory Rate 16 12/16/23 21:51 Blood Pressure 139/76 12/16/23 21:51 Pulse Oximetry 97 12/16/23 21:51 Oxygen Delivery Me thod Room Air 12/16/23 21:51 MDM - Abdominal Pain Medical Decision Making CBC, CMP and lipase normal. Urinalysis normal. CT scan of the abdomen pelvis was read by the radiologist as normal. Patient was given IV fluids, morphine and Zofran. She is feeling better. She was discharged in stable condition. I recommended she try laxatives to see if that might help. Follow-up with primary care physician for recheck. Lab Data 12/16/23 21:22 12/16/23 21:22 Labs/Radiology: Radiology Impressions Abdomen/Pelvis CT 12/16/23 21:23 IMPRESSION: 1. No evidence of acute abnormality in the abdomen or pelvis within limitations of a noncontrast exam. Laboratory Results WBC 7.93 10^3/uL (3.29-11.43) 12/16/23 21: RBC 5.02 10^6/uL (3.85-5.65) 12/16/23 21:22 Hgb 14.90 g/dL (11.27-16.99) 12/16/23 21:22 Hct 45.7 % (36-47) 12/16/23 21: MCV 91.0 fl (85-98) 12/16/23 21: MCH 29.7 pg (27-33) 12/16/23 21: MCHC 32.6 g/dL (30-55) 12/16/23 21: RDW 13.2 % (12.1-15.1) 12/16/23 21: Plt Count 289 10^3/cmm (157-399) 12/16/23 21:22 MPV 9.9 fL (7.4-10.4) 12/16/23 21: Neut % (Auto) 54.0 % 12/16/23 21: Lymph % (Auto) 35.1 % 12/16/23 21: [place] % (Auto) 7.8 % 12/16/23 21: Eos % (Auto) 2.3 % 12/16/23 21: Baso % (Auto) 0.5 % 12/16/23 21: Neut # (Auto) 4.29 10^3/uL (1.8-7.7) 12/16/23 21: Lymph # (Auto) 2.8 10^3/uL (0.8-4.8) 12/16/23 21:22 [place] # (Auto) 0.6 10^3/uL (0.2-0.9) 12/16/23 21: Eos # (Auto) 0.2 10^3/uL (0.0-0.8) 12/16/23 21: Baso # (Auto) 0.0 10^3/uL (0.0-0.1) 12/16/23 21: Nucleated RBC % (auto) 0 % 12/16/23 21: Nucleated RBCs # 0.0 /100WBC 12/16/23 21:22 Sodium 142 mmol/L (136-145) 12/16/23 21:22 Potassium 3.5 mmol/L (3.5-5.1) 12/16/23 21: Chloride 102 mmol/L (98-107) 12/16/23 21: Carbon Dioxide 27 mmol/L (22-29) 12/16/23 21:22 Anion Gap 16.5 (5-19) 12/16/23 21:22 BUN 17 mg/dL (8-23) 12/16/23 21: Creatinine 1.0 mg/dL (0.5-0.9) H 12/16/23 21:22 GFR Calculation 55.0 mL/min (90-130) L 12/16/23 21:22 Glucose 136 mg/dL (65-115) H 12/16/23 21:22 Calculated Osmolality 298 mOsm/kg (285-295) H 12/16/23 21:22 Calcium 8.6 mg/dL (8.5-10.5) 12/16/23 21:22 Total Bilirubin 0.5 mg/dL (0.15-1.2) 12/16/23 21:22 AST 23 U/L (0-32) 12/16/23 21:22 ALT 18 U/L (0-33) 12/16/23 21:22 Alkaline Phosphatase 54 U/L (35-105) 12/16/23 21:22 Total Protein 6.7 g/dL (6.6-8.7) 12/16/23 21:22 Albumin 4.0 g/dL (3.5-5.2) 12/16/23 21:22 Globulin 2.7 g/dL (1.3-4.6) 12/16/23 21:22 Lipase 28 U/L (13-60) 12/16/23 21:22 Urine Color Yellow (Yellow) 12/16/23 21:46 Urine Appearance Clear (CLEAR) 12/16/23 21:46 Urine pH 7.0 (5-7) 12/16/23 21:46 Ur Specific [place] 1.021 (1.005-1.030) 12/16/23 21:46 Urine Protein Negative (Negative) 12/16/23 21:46 Urine Glucose (UA) Negative (Normal) 12/16/23 21:46 Urine Ketones Trace (Negative) 12/16/23 21:46 Urine Blood Negative (Negative) 12/16/23 21:46 Urine Nitrate Negative (Negative) 12/16/23 21:46 Urine Bilirubin Negative (Negative) 12/16/23 21:46 Urine Urobilinogen 1.0 mg/dL (Negative) 12/16/23 21:46 Ur Leukocyte Esterase Trace (Negative) A 12/16/23 21:46 Urine RBC 0-2 /hpf (0-2) 12/16/23 21:46 Urine WBC 6-10 /hpf (0-5) 12/16/23 21:46 Ur Squamous Epith Cells 0-5 /hpf (0-5) 12/16/23 21:46 Amorphous Sediment Not Reportable 12/16/23 21:46 Urine Bacteria None seen /hpf (NONE) 12/16/23 21:46 Hyaline Casts 0-4 /lpf H 12/16/23 21:46 All radiology interpretation(s) finalized by discharge Discharge Plan Discharge Patient Disposition: Home Clinical Impression: Abdominal pain Qualifiers: Abdominal location: lower abdomen, unspecified Qualified Code(s): R10.30 - Lower abdominal pain, unspecified Condition: Stable Prescriptions: No Action cetirizine 10 mg capsule 10 mg PO QDAY PRN (Reason: allergy symptoms) cholecalciferol (vitamin D3) 5,000 unit capsule 5,000 unit PO QDAY Women's 50 Plus Multivitamin 400 mcg-500 mg calcium-20 mcg tablet 1 tab PO QDAY aspirin [Adult Low Dose Aspirin] 81 mg tablet,delayed release (DR/EC) 81 mg PO QDAY prednisone 20 mg tablet 60 mg PO DAILY 5 Days Qty: 15 0RF famotidine [Pepcid] 40 mg tablet 40 mg PO BID 5 Days Qty: 10 0RF diphenhydramine HCl [Benadryl Allergy] 25 mg tablet 50 mg PO Q8H PRN (Reason: itching) Qty: 60 0RF (DME) auto cpap See Rx Instructions .Route .MEDSUPPLY Qty: 1 0RF Rx Instructions: 6-16cm of H2O used nightly. lisinopril-hydrochlorothiazide 10-12.5 mg tablet See Rx Instructions .ROUTE .COMPLEX Qty: 90 3RF Dose Instruction: TAKE ONE TABLET BY MOUTH EVERY DAY Rx Instructions: TAKE ONE TABLET BY MOUTH EVERY DAY ondansetron 4 mg tablet,disintegrating 4 mg PO Q6H PRN (Reason: nausea and vomiting) Qty: 14 0RF Naprosyn 500 mg tablet 500 mg PO BID PRN (Reason: pain) Qty: 20 0RF Augmentin 500-125 mg tablet 1 tab PO BID Qty: 14 0RF Discharge Orders: Discharge ED (Routine); Ordered 12/16/23 Ordered By: Roni Lora Referrals: Romeo Ferrer DO [Primary Care Provider] - Patient Instructions: Abdominal Pain (ED) Activity Restrictions/Additional Instructions: Try taking a laxative to move your bowels. If that does not help follow-up with your primary care physician. Coding Level of Care Code ED Manager Meat for Sabino Carrillo
[2023-12-16 23:31] VITALS: BP 128/88; PULSE 57; RESP 16; O2SAT 95
== END 2023-12-16 23:33 | disposition home or self-care (01) ==
PROVIDERS: Emergency Provider Emergency Medicine; PCP Family Medicine
DX: R10.30 Lower abdominal pain, unspecified (principal); Z79.82 Long term (current) use of aspirin; I10 Essential (primary) hypertension
CPT/HCPCS: 74176; 80053; 81001; 83690; 85025; 96361; 96374; 99285; J2405; J7030

== ENCOUNTER 2024-05-11 20:44 | Emergency (ER) | payer MEDICARE, OTHER, SELFPAY ==
[2024-05-11 20:48] VITALS: BP 131/82; PULSE 53; RESP 17; TEMP 36.7; O2SAT 98; BMI 25.2
--- NOTE | 2024-05-11 21:09 | CTR_ITS ---
PROCEDURE INFORMATION: Exam: CT Abdomen And Pelvis With Contrast Exam date and time: 05/11/2024 9:38 PM Age: 68 years old Clinical indication: Nausea and vomiting; Abdominal pain; Localized; Right upper quadrant (ruq); Prior surgery; Surgery date: 6+ months; Surgery type: Breast lumpectomy. Appy. Oophorectomy. C/O ruq pain with n/v. ; Additional info: Ruq pain vomiting TECHNIQUE: Imaging protocol: Computed tomography of the abdomen and pelvis with contrast. Radiation optimization: All CT scans at this facility use at least one of these dose optimization techniques: automated exposure control; mA and/or kV adjustment per patient size (includes targeted exams where dose is matched to clinical indication); or iterative reconstruction. Contrast material: OMNI 350; Contrast volume: 100 ml; Contrast route: INTRAVENOUS (IV); COMPARISON: CT abdomen pelvis wo con [id number] 12/16/2023 9:59 PM RADIATION DOSE METRICS: Total DLP (mGy-cm): 318.16 FINDINGS: Lungs: Clear basilar lung parenchyma. Pleural spaces: No pleural fluid. Heart: Normal heart size. Liver: Normal configuration. Homogeneous parenchyma. Gallbladder and biliary ducts: Gallbladder is distended and contains tiny dependent stones. No gallbladder inflammatory change or biliary tree dilation. No visible common duct stones. Pancreas: No pancreatic edema or mass. Spleen: Normal. No splenomegaly. Adrenal glands: Normal configuration. Kidneys and ureters: Two simple cysts are noted in the upper pole of the right kidney, larger measuring 3.5 cm in diameter. No solid renal mass, obstruction, or features of pyelonephritis. Stomach and bowel: Small amount of retained material noted in the stomach. No visible gastric mass, ulcer, or abnormal mucosal enhancement. Normal caliber small bowel. Normal colon without inflammation or diverticular disease. Appendix: Prior appendectomy. Intraperitoneal space: No free air. No significant fluid collection. Vasculature: Normal caliber arterial structures. Lymph nodes: No enlarged lymph nodes. Urinary bladder: Unremarkable as visualized. Reproductive: Heterogeneous uterus likely reflects fibroids. No adnexal mass or inflammation. Bones/joints: There is a prominent posterior bridging osteophyte at L1-L2 causing moderate spinal canal stenosis. Spinal canal is otherwise adequate throughout. There is facet arthropathy at L4-L5 and L5-S1 causing mild left neural foraminal stenosis at L5-S1. Normal appearance of the sacroiliac joints. No significant hip arthropathy. No fracture or destructive lesion. Soft tissues: Unremarkable. CT/CT abdomen pelvis w con* [id number] IMPRESSION: 1. Distended gallbladder contains numerous small stones. No gallbladder inflammatory change. No visible common duct stone. 2. Spinal stenosis at L1-L2. Correlate with any symptoms of neurogenic claudication.
--- NOTE | 2024-05-11 21:09 | USR_ITS ---
PROCEDURE INFORMATION: Exam: US Abdomen, Limited; Right Upper Quadrant Exam date and time: 05/11/2024 10:42 PM Age: 68 years old Clinical indication: Abdominal pain; Generalized; Additional info: Ruq pain TECHNIQUE: Imaging protocol: Real time ultrasound of the abdomen with image documentation. Limited exam focused on the right upper quadrant. COMPARISON: US gall bladder [id number] 07/16/2023 3:25 AM FINDINGS: Liver: Normal homogeneous liver parenchyma. Gallbladder: Cholelithiasis. Borderline gallbladder wall thickening was not appreciated on CT. No pericholecystic fluid. Sonographic Gamboa sign was not recorded. Biliary ducts: Common duct measures 5 mm at the janneth hepatis. Pancreas: Visualized pancreas is unremarkable. Right kidney: Simple septated cysts noted in the right kidney. No evidence of renal obstruction. Aorta: Normal caliber abdominal aorta. Portal venous: Antegrade flow in the main portal vein. US/US gall bladder [id number] IMPRESSION: Cholelithiasis with wall thickening could reflect early acute cholecystitis. Common duct is normal in caliber for age. Impression:
[2024-05-11 21:10] LABS: Basophils % 0.4 %; Eosinophils # 0.1 10^3/uL (0.0-0.8); Eosinophils % 1.5 %; Lymphocytes # 2.9 10^3/uL (0.8-4.8); Lymphocytes % 30.1 %; Mean Corpuscular HGB Conc 32.9 g/dL (30-55); Mean Corpuscular Hemoglobin 29.7 pg (27-33); Mean Corpuscular Volume 90.4 fl (85-98); Mean Platelet Volume 10.1 fL (7.4-10.4); Monocytes # 0.8 10^3/uL (0.2-0.9); Monocytes % 8.2 %; Neutrophils # 5.63 10^3/uL (1.8-7.7); Neutrophils % 59.6 %; Nucleated Red Blood Cells % 0 %; Platelet Count 295 10^3/cmm (157-399); Red Blood Count 4.98 10^6/uL (3.85-5.65); Red Cell Distribution Width 13.1 % (12.1-15.1); White Blood Count 9.46 10^3/uL (3.29-11.43)
[2024-05-11 21:15] VITALS: BP 164/93; PULSE 50; O2SAT 99
[2024-05-11] MEDS: ondansetron 2 mg/ML SDV 2 mL 4 MG IVP ×2 (21:18→22:23)
[2024-05-11 21:19] VITALS: RESP 18; O2SAT 98
[2024-05-11] MEDS: morphine 4 mg/mL SDV 1 mL IVP (21:19)
--- NOTE | 2024-05-11 21:21 | W.ED.ABDPA2 ---
HPI - Abdominal Pain General: Chief Complaint: Abdominal Pain Stated Complaint: back and abd pain, nausea Time Seen by Provider: 05/11/24 20:58 History of Present Illness: 68-year-old female with history of generalized abdominal pain and multiple episodes of vomiting today. Pain moves into the lower back as well. Seems to be both sides. No diarrhea. Small bowel movement this morning. No fever. Vomit was bile in appearance. She has had an appendectomy in the past. Related Data Home Medications ?Medication ?Instructions ?Recorded ?Confirmed aspirin 81 mg tablet,delayed 81 mg PO QDAY 02/26/19 10/12/22 release (Adult Low Dose Aspirin) cetirizine 10 mg capsule 10 mg PO QDAY PRN allergy symptoms 02/26/19 11/15/23 cholecalciferol (vitamin D3) 125 5,000 unit PO QDAY 02/26/19 10/12/22 mcg (5,000 unit) capsule hjcjhnfr-fsm-uikcv ac 400 1 tab PO QDAY 02/26/19 10/12/22 mcg-calcium carb 500 mg-vit K1 20 mcg tablet (Women's 50 Plus Multivitamin) Previous Rx's ?Medication ?Instructions ?Recorded diphenhydramine HCl 25 mg tablet 50 mg (2 x 25 mg) PO Q8H PRN 10/12/22 (Benadryl Allergy) itching #60 tabs famotidine 40 mg tablet (Pepcid) 40 mg PO BID 5 days #10 tabs 10/12/22 prednisone 20 mg tablet 60 mg (3 x 20 mg) PO DAILY 5 days 10/12/22 #15 tabs naproxen 500 mg tablet (Naprosyn) 500 mg PO BID PRN pain #20 tabs 07/16/23 auto cpap #1 ea 01/08/24 lisinopril 10 See Rx Instructions .Route 02/19/24 mg-hydrochlorothiazide 12.5 mg .COMPLEX #90 tabs tablet amoxicillin 875 mg-potassium 1 tab PO BID #20 tabs 05/12/24 clavulanate 125 mg tablet ondansetron 4 mg disintegrating 4 mg PO Q6H PRN nausea and 05/12/24 tablet vomiting #20 tabs oxycodone-acetaminophen 7.5 mg-325 1 tab PO Q6H PRN pain #10 tabs 05/12/24 mg tablet (Percocet) Allergies Allergy/AdvReac Type Severity Reaction Status Date / Time Rhrtxal-PHH-PnW Reductase Allergy Intermediate ALGY-Joint Verified 03/11/24 11:28 Inhibitor (Myjgaaa-Syl-Ron Pain Reductase Inhibitor) Sulfa (Sulfonamide Allergy Intermediate Rash Verified 03/11/24 11:28 Antibiotics) PFSH ED PFSH: Medical History Hypertension Hypoglycemia Nasal vestibulitis Surgical History History of knee surgery History of lumpectomy Family History Mother Dementia Father Cancer Other Hypertension Social History Smoking and tobacco/nicotine status: never used tobacco/nicotine Alcohol intake: current Alcohol intake frequency: few times a month Substance/Drug Use: never Pets and animals: No Physical Exam Const: COMMON NORMALS: no acute distress GENERAL APPEARANCE: cooperative; not frail appearing HENMT: COMMON NORMALS: normocephalic, atraumatic and Normal external nose present HEAD & SCALP: normocephalic and atraumatic FACE & SINUS: normal facial exam and face symmetric NOSE: Normal external nose present Eye: COMMON NORMALS: Equal, round and reactive pupils present and EOMs intact bilaterally PUPIL: Yes Equal, round and reactive pupils present Neck/C-Spine: GENERAL: Yes trachea midline Chest: CHEST: Yes Symmetrical chest wall rise Resp: COMMON NORMALS: normal respiratory effort, No retractions, No use of accessory muscles and clear to auscultation bilaterally AUSCULTATION: clear to auscultation bilaterally Cardio: COMMON NORMALS: regular rate and regular rhythm RATE: regular rate RHYTHM: regular rhythm GI: COMMON NORMALS: Normal to inspection, nondistended, normoactive bowel sounds present PALPATION: Yes Tenderness to palpation present (GI) Details: RUQ and Yes Guarding due to palpation present (GI) Extremity: COMMON NORMALS: no pedal edema Neuro: SONIYA COMA SCALE: document GCS findings [place] coma scale eye opening: Spontaneous [place] coma scale verbal response: Orientated [place] coma scale motor response: Obey commands [place] coma scale total score: 15 SENSORY EXAM: Yes extremities (intact) Psych: COMMON NORMALS: speech normal SPEECH: Yes normal speech Skin: COMMON NORMALS: no rashes or lesions noted GENERAL SKIN EXAM: no rashes or lesions noted Course Vital Signs: Vital signs: Vital Signs Temperature 98.1 F 05/11/24 20:48 Pulse Rate 51 L 05/11/24 23:20 Respiratory Rate 21 H 05/11/24 23:20 Blood Pressure 124/72 05/11/24 23:20 Pulse Oximetry 94 05/11/24 23:20 Oxygen Delivery Me thod Room Air 05/11/24 23:20 MDM - Abdominal Pain Medical Decision Making Temperature and blood pressure are normal. The patient is bradycardic, significantly bradycardic, with heart rates in the 40s. Appears sinus on the monitor. She states that her heart rate is always low, in the 40s and 50s. CBC is normal. BMP is normal. CRP is 3. Lactic acid is 1.8, lipase is 38. Liver enzymes are normal. CT shows a distended gallbladder with numerous gallstones. Ultrasound shows minimal wall thickening in 1 area which could indicate early acute cholecystitis. Spoke with surgery. Recommendations are antibiotics, pain medication, antiemetics, close outpatient follow-up, return for any worsening symptoms or fever. Spoke with patient and family. They wish to see Dr. Mosqueda as an outpatient. Referral provided. Lab Data 05/11/24 21:05 05/11/24 21:05 Labs/Radiology: Radiology Impressions Abdomen/Pelvis CT 05/11/24 21:09 IMPRESSION: 1. Distended gallbladder contains numerous small stones. No gallbladder inflammatory change. No visible common duct stone. 2. Spinal stenosis at L1-L2. Correlate with any symptoms of neurogenic claudication. Gallbladder Ultrasound 05/11/24 21:09 IMPRESSION: Cholelithiasis with wall thickening could reflect early acute cholecystitis. Common duct is normal in caliber for age. Impression: Laboratory Results WBC 9.46 10^3/uL (3.29-11.43) 05/11/24 21:05 RBC 4.98 10^6/uL (3.85-5.65) 05/11/24 21:05 Hgb 14.80 g/dL (11.27-16.99) 05/11/24 21:05 Hct 45.0 % (36-47) 05/11/24 21:05 MCV 90.4 fl (85-98) 05/11/24 21:05 MCH 29.7 pg (27-33) 05/11/24 21:05 MCHC 32.9 g/dL (30-55) 05/11/24 21:05 RDW 13.1 % (12.1-15.1) 05/11/24 21:05 Plt Count 295 10^3/cmm (157-399) 05/11/24 21:05 MPV 10.1 fL (7.4-10.4) 05/11/24 21:05 Neut % (Auto) 59.6 % 05/11/24 21:05 Lymph % (Auto) 30.1 % 05/11/24 21:05 Parmer % (Auto) 8.2 % 05/11/24 21:05 Eos % (Auto) 1.5 % 05/11/24 21:05 Baso % (Auto) 0.4 % 05/11/24 21:05 Neut # (Auto) 5.63 10^3/uL (1.8-7.7) 05/11/24 21:05 Lymph # (Auto) 2.9 10^3/uL (0.8-4.8) 05/11/24 21:05 Parmer # (Auto) 0.8 10^3/uL (0.2-0.9) 05/11/24 21:05 Eos # (Auto) 0.1 10^3/uL (0.0-0.8) 05/11/24 21:05 Baso # (Auto) 0.0 10^3/uL (0.0-0.1) 05/11/24 21:05 Nucleated RBC % (auto) 0 % 05/11/24 21: Nucleated RBCs # 0.0 /100WBC 05/11/24 21:05 Sodium 137 mmol/L (136-145) 05/11/24 21:05 Potassium 3.5 mmol/L (3.5-5.1) 05/11/24 21:05 Chloride 96 mmol/L (98-107) L 05/11/24 21:05 Carbon Dioxide 29 mmol/L (22-29) 05/11/24 21:05 Anion Gap 15.5 (5-19) 05/11/24 21:05 BUN 19 mg/dL (8-23) 04/06/25 21:05 Creatinine 0.7 mg/dL (0.5-0.9) 05/11/24 21:05 GFR Calculation 83.0 mL/min (90-130) L 05/11/24 21:05 Glucose 106 mg/dL (65-115) 05/11/24 21:05 Calculated Osmolality 287 mOsm/kg (285-295) 05/11/24 21:05 Lactic Acid 1.8 mmol/L (0.5-2.2) 05/11/24 21:05 Calcium 9.3 mg/dL (8.5-10.5) 05/11/24 21:05 Total Bilirubin 0.4 mg/dL (0.15-1.2) 05/11/24 21:05 AST 16 U/L (0-32) 05/11/24 21: ALT 16 U/L (0-33) 05/11/24 21:05 Alkaline Phosphatase 48 U/L (35-105) 05/11/24 21:05 C-Reactive Protein 3.0 mg/L (0.0-4.9) 05/11/24 21:05 Total Protein 6.8 g/dL (6.6-8.7) 05/11/24 21:05 Albumin 4.0 g/dL (3.5-5.2) 05/11/24 21:05 Globulin 2.8 g/dL (1.3-4.6) 05/11/24 21:05 Lipase 38 U/L (13-60) 05/11/24 21:05 Urine Color Yellow (Yellow) 05/11/24 21:05 Urine Appearance Slightly cloudy (CLEAR) 05/11/24 21:05 Urine pH 9 (5-7) A 05/11/24 21:05 Ur Specific [place] 1.010 (1.005-1.030) 05/11/24 21:05 Urine Protein Neg (Negative) 05/11/24 21: Urine Glucose (UA) Norm (Normal) 05/11/24 21:05 Urine Ketones Negative (Negative) 05/11/24 21:05 Urine Blood Neg (Negative) 05/11/24 21: Urine Nitrate Negative (Negative) 05/11/24 21: Urine Bilirubin Neg (Negative) 05/11/24 21: Urine Urobilinogen Norm mg/dL (Negative) 05/11/24 21:05 Ur Leukocyte Esterase Trace (Negative) H 05/11/24 21:05 Urine RBC 6-10 /hpf (0-2) 05/11/24 21:05 Urine WBC 0-5 /hpf (0-5) 05/11/24 21:05 Ur Squamous Epith Cells 0-5 /hpf (0-5) 05/11/24 21:05 Amorphous Sediment Not Reportable 05/11/24 21:05 Urine Bacteria None seen /hpf (NONE) 05/11/24 21:05 Hyaline Casts 0.81 /lpf 05/11/24 21:05 All radiology interpretation(s) finalized by discharge Discharge Plan Discharge Patient Disposition: Home Clinical Impression: Biliary colic Condition: Stable Prescriptions: New oxycodone-acetaminophen [Percocet] 7.5-325 mg tablet 1 tab PO Q6H PRN (Reason: pain) Qty: 10 0RF amoxicillin-pot clavulanate 875-125 mg tablet 1 tab PO BID Qty: 20 0RF Continued ondansetron 4 mg tablet,disintegrating 4 mg PO Q6H PRN (Reason: nausea and vomiting) Qty: 20 0RF Discontinued amoxicillin-pot clavulanate [Augmentin] 500-125 mg tablet 1 tab PO BID Qty: 14 0RF No Action cetirizine 10 mg capsule 10 mg PO QDAY PRN (Reason: allergy symptoms) cholecalciferol (vitamin D3) 5,000 unit capsule 5,000 unit PO QDAY Women's 50 Plus Multivitamin 400 mcg-500 mg calcium-20 mcg tablet 1 tab PO QDAY aspirin [Adult Low Dose Aspirin] 81 mg tablet,delayed release (DR/EC) 81 mg PO QDAY prednisone 20 mg tablet 60 mg PO DAILY 5 Days Qty: 15 0RF famotidine [Pepcid] 40 mg tablet 40 mg PO BID 5 Days Qty: 10 0RF diphenhydramine HCl [Benadryl Allergy] 25 mg tablet 50 mg PO Q8H PRN (Reason: itching) Qty: 60 0RF (DME) auto cpap See Rx Instructions .Route .MEDSUPPLY Qty: 1 0RF Rx Instructions: 6-16cm of H2O used nightly. lisinopril-hydrochlorothiazide 10-12.5 mg tablet See Rx Instructions .ROUTE .COMPLEX Qty: 90 3RF Dose Instruction: TAKE ONE TABLET BY MOUTH EVERY DAY Rx Instructions: TAKE ONE TABLET BY MOUTH EVERY DAY Naprosyn 500 mg tablet 500 mg PO BID PRN (Reason: pain) Qty: 20 0RF Discharge Orders: Discharge ED (Routine); Ordered 05/12/24 Ordered By: Zach Edward Referrals: Robby Mosqueda MD [Physician] - 1-3 days Romeo Ferrer DO [Primary Care Provider] - 4-7 days Patient Instructions: Biliary Colic (ED), Abdominal Pain (ED), Opioid Safety, Pain Management Activity Restrictions/Additional Instructions: Call the general surgery office listed above in the morning. Let them know you were seen in the emergency room with biliary colic and have stones in your gallbladder. Make an appointment for follow-up. Return for fever greater than 100, vomiting liquids or medications, worsening pain despite treatment, any other concerning symptoms. Stay on liquids for 24 hours, if you are feeling improved, you may advance your diet at that point Print Language: Setswana Coding Level of Care Code ED Casing In Line Setter for Sabino Carrillo
[2024-05-11] MEDS: ketorolac 30 mg/mL INJ IVP (21:24)
[2024-05-11 21:26] LABS: Alanine Aminotransferase 16 U/L (0-33); Alkaline Phosphatase 48 U/L (35-105); Anion Gap 15.5 (5-19); Aspartate Amino Transferase 16 U/L (0-32); Blood Urea Nitrogen 19 mg/dL (8-23); Calcium 9.3 mg/dL (8.5-10.5); Carbon Dioxide 29 mmol/L (22-29); Chloride 96 mmol/L (98-107); Creatinine Clr Calc Pharmacy 64.7279; Globulin 2.8 g/dL (1.3-4.6); Glucose 106 mg/dL (65-115); Lipase 38 U/L (13-60); Osmolality Calculated 287 mOsm/kg (285-295); Potassium 3.5 mmol/L (3.5-5.1); Sodium 137 mmol/L (136-145); Total Bilirubin 0.4 mg/dL (0.15-1.2); Total Protein 6.8 g/dL (6.6-8.7)
[2024-05-11 21:27] LABS: Lactic Sepsis W/Reflex 1.8 mmol/L (0.5-2.2)
[2024-05-11 21:40] LABS: Bacteria Urine None Seen /hpf; Hyaline Casts Urine 0.81 /lpf; Squamous Epithelial Cell Urine 0-5 /hpf (0-5); WBC Urine 0-5 /hpf (0-5)
[2024-05-11] MEDS: iohexol 350 mg/mL 500 mL Btl (per mL) IV (21:40)
[2024-05-11 21:41] LABS: Add Urine Microscopic? YES; Bilirubin Urine Neg (Negative); Blood Urine Neg (Negative); Glucose Urine UA Norm (Normal); Ketones Urine Negative (Negative); Leukocyte Esterase Urine Trace (Negative); Nitrate Urine Negative (Negative); Protein Urine Neg (Negative); Urine Appearance Slightly Cloudy (CLEAR); Urine Color Yellow (Yellow); Urobilinogen Urine Norm (Negative); pH Urine 9 (5-7)
[2024-05-11] MEDS: sodium chloride 0.9% 500 ML 999 ML IV (21:47)
[2024-05-11 22:00] VITALS: BP 137/80; PULSE 62; O2SAT 96
[2024-05-11] MEDS: metoclopramide 5 mg/mL SDV 2 mL 10 MG IVP (22:22)
[2024-05-11 23:17] VITALS: RESP 16; O2SAT 95
[2024-05-11] MEDS: fentaNYL 50 mcg/mL INJ 2mL 75 MCG IVP (23:17)
[2024-05-11 23:20] VITALS: BP 124/72; PULSE 51; RESP 21; O2SAT 94
[2024-05-12] VITALS: BP 134/70; PULSE 42; RESP 20; O2SAT 99
[2024-05-12] MEDS: ondansetron 4 MG Tablet 8 MG PO (00:30)
[2024-05-12] MEDS: oxyCODONE-APAP 5-325 mg Tablet 2 TAB PO (00:31)
--- NOTE | 2024-05-12 00:44 | PC.NURSE ---
2 tabs of of zofran sent home in prescription bottle, 2 tabs of oxycodone sent home with pt in bottle per MD Edward.
[2024-05-12 00:47] VITALS: BP 139/70; PULSE 45; RESP 20; O2SAT 98
== END 2024-05-12 00:35 | disposition home or self-care (01) ==
PROVIDERS: Emergency Provider Emergency Medicine; PCP Family Medicine
DX: K80.50 Calculus of bile duct without cholangitis or cholecystitis without obstruction (principal); Z79.82 Long term (current) use of aspirin; I10 Essential (primary) hypertension
CPT/HCPCS: 36415; 74177; 76705; 80053; 81001; 83605; 83690; 85025; 86140; 96361; 96374; 96375; 96376; 99285; J1885; J2270; J2405; J2765; J3010; J7040; J9999; Q0162

== ENCOUNTER → 2024-08-21 11:25 | Outpatient (BNVA) | payer MEDICARE, OTHER, SELFPAY | PROVIDERS: PCP Family Medicine; Visit Provider Family Medicine | DX: Z00.00 Encounter for general adult medical examination without abnormal findings (principal); I10 Essential (primary) hypertension; E03.9 Hypothyroidism, unspecified | CPT/HCPCS: 80053; 80061; 82306; 82607; 83036; 84443; 85025 ==

== ENCOUNTER → 2024-11-26 10:02 | Outpatient (BNVA) | payer MEDICARE, OTHER, SELFPAY | PROVIDERS: PCP Family Medicine; Visit Provider Family Medicine | DX: E55.9 Vitamin D deficiency, unspecified (principal) | CPT/HCPCS: 82306 ==